=== PATIENT | male | born 1935 | race Caucasian/White ===

== ENCOUNTER 2019-01-30 10:54 | Outpatient (CLI) | payer MEDICARE, BC ==
--- NOTE | 2019-01-30 12:24 | RAD ---
CERVICAL SPINE THREE VIEWS: HISTORY: Cervicalgia. FINDINGS: Very markedly severe disk osteophytosis throughout the cervical spine with some actual kyphosis. No significant prevertebral soft tissue swelling. C7 and T1 are partially obscured on the lateral view. No acute fracture. IMPRESSION: 1. Very severe spondylosis with some actual kyphosis of the vertebral column. 2. No acute fracture or dislocation. Consider follow-up MRI for further assessment. POS: OFF
== END 2019-01-30 10:55 | disposition home or self-care (01) ==
LOC: BICRAD 10:54
PROVIDERS: ATTEND Family Medicine
DX: M54.2 Cervicalgia (principal); M47.812 Spondylosis without myelopathy or radiculopathy, cervical region; M40.202 Unspecified kyphosis, cervical region
CPT/HCPCS: 72040

== ENCOUNTER 2019-02-25 08:06 | Outpatient (CLI) | payer MEDICARE, BC ==
--- NOTE | 2019-02-25 09:31 | MRI ---
MRI cervical spine noncontrast HISTORY: Neck pain. Left arm radiation. FINDINGS: Desiccation of all of the intervertebral discs. Reversal normal lordotic curvature of the u pper cervical spine. Vertebral body heights are maintained. Prominent soft tissue gas posterior to the odontoid process effacement of ventral aspect of the thecal sac and spinal cord. No abnormal sign al is apparent within the spinal cord. C2-3: Minimal degenerative spondylolisthesis. Osteophytosis. Central canal and neural foramina are pa tent. C3-4: Minimal degenerative spondylolisthesis. Moderate posterior osteophyte/disc complex, slightly gr eater to the right midline, effacing the right side of the thecal sac and spinal cord. Severe central canal stenosis. No abnormal signal within the spinal cord. Severe bilateral foraminal stenose s. C4-5: Disc space narrowing. Prominent posterior osteophyte/disc complex, flattening right ventral asp ect of the spinal cord by approximately 30%. No abnormal signal within the cord. Severe central canal and bilateral foraminal stenoses. C5-6: Disc space narrowing and minimal degenerative retrolisthesis. Prominent posterior osteophyte/di sc complex compressing the spinal cord by approximately 40%. No abnormal signal within the cord. Severe central canal and bilateral foraminal stenoses, right worse than left. C6-7: Disc space narrowing and minimal degenerative retrolisthesis. Prominent posterior osteophyte/di sc complex and circumferential degenerative changes with severe stenosis of the central canal and neural foramina. C7-T1: Minimal degenerative spondylolisthesis. Mild central canal stenosis. Mild left foraminal steno ses. IMPRESSION: Severe multilevel degenerative changes throughout the cervical spine as detailed above, i ncluding significant compression of the spinal cord. No evidence of myelomalacia.
== END 2019-02-25 08:07 | disposition home or self-care (01) ==
LOC: BICMRI 08:06
PROVIDERS: ATTEND Family Medicine
DX: M47.9 Spondylosis, unspecified (principal); M47.812 Spondylosis without myelopathy or radiculopathy, cervical region; M40.292 Other kyphosis, cervical region
CPT/HCPCS: 72141

== ENCOUNTER 2019-03-15 12:44 | Outpatient (CLI) | payer MEDICARE, BC ==
[2019-03-15 12:20] LABS: Hemoglobin 12.9 g/dL (14.0-18.0); Mean Corpuscular Hemoglobin 32.8 pg (27.0-31.0); Mean Corpuscular Volume 99.3 fL (78.0-98.0); Mean Platelet Volume 9.9 fL (7.4-10.4); Platelet Count 157 thou/uL (130-400); Red Blood Cell (RBC) Count 3.92 mill/uL (4.70-6.10); White Blood Cell (WBC) Count 7.8 thou/uL (4.8-10.8)
[2019-03-15 12:29] LABS: Prothrombin Time 13.4 SEC (12.0-14.7)
[2019-03-15 12:30] LABS: PTT 37.8 SEC (22.9-36.1)
[2019-03-15 12:38] LABS: Anion Gap 16 mmol/L (10-20); BUN (Urea Nitrogen) 30 mg/dL (8.4-25.7); Calc. Creatinine Clearance 0 mL/min (70-130); Calcium 9.3 mg/dL (7.8-10.44); Carbon Dioxide 25 mmol/L (23-31); Chloride 105 mmol/L (98-107); Estimated GFR-MDRD 49; Glucose 80 mg/dL (83-110); Potassium 5.1 mmol/L (3.5-5.1); Sodium 141 mmol/L (136-145)
== END 2019-03-15 12:45 | disposition home or self-care (01) ==
LOC: LABBT 12:44
PROVIDERS: ATTEND Urology
DX: Z01.812 Encounter for preprocedural laboratory examination (principal); C67.3 Malignant neoplasm of anterior wall of bladder
CPT/HCPCS: 80048; 85027; 85610; 85730

== ENCOUNTER 2019-03-18 07:36 | Day surgery (SDC) | payer MEDICARE, BC ==
[2019-03-15 11:39] VITALS: BMI 29.5
[2019-03-18] MEDS ORDERED: Fentanyl 100 MCG/2 ML VIAL ONE (10:27)
[2019-03-18] MEDS ORDERED: PROPOFOL 200 MG/20 ML VIAL ONE (11:40)
--- NOTE | 2019-03-18 13:00 | RAD ---
RETROGRADE PYELOGRAM: Date: 03/18/19 HISTORY: Bladder tumor. FINDINGS: A series of 4 films are presented for interpretation. These show filling of nondilated collecting sys tems without evidence of any filling defects. IMPRESSION: Unremarkable bilateral retrograde pyelogram. POS: [facility]
--- NOTE | 2019-03-18 15:04 | OP ---
DATE OF PROCEDURE: 03/18/2019 PREOPERATIVE DIAGNOSES: Bladder lesion, history of transitional cell carcinoma of the bladder. POSTOPERATIVE DIAGNOSES: Bladder lesion, history of transitional cell carcinoma of the bladder. PROCEDURES PERFORMED: Cystoscopy, bilateral retrograde pyelography and transurethral removal with fulguration of small, less than 0.5 cm bladder lesion. SPECIMEN REMOVED: Bladder tumor from anterior wall. ESTIMATED BLOOD LOSS: Minimal. DRAINS: None. FINDINGS: There is no evidence of stricture disease. He has enlarged lateral lobes and some median lobe. He had 1+ trabeculation to ureteral orifices with clear efflux. Retrograde studies bilaterally showed no persistent filling defects or hydronephrosis. He had only 1 lesion seen, it was on the anterior wall between the anterior wall and the bladder neck about less than half a centimeter in size on today's estimation. It was removed with in 2 bites with the biopsy forceps, and then, its base was cauterized with a Bugbee electrode. DESCRIPTION OF PROCEDURE: Obtained written and verbal consent from the patient. After receiving IV antibiotics, he was taken to the operating suite. He was placed in supine position on the treatment table. PlexiPulses were placed on his lower extremities and turned on. He was given a general anesthetic and oral obturator intubation. He was placed in the dorsal lithotomy position. He was sterilely prepped and draped. Cystoscopy was performed with a 22-[place] sheath, this was well lubricated, passed under direct vision through the male urethra and into the urinary bladder with the aid of 30-degree lens video camera and monitor. The bladder was then systematically examined with both the 30- and 70-degree lens and was filled and emptied number of times in doing so. We then returned to the 30-degree lens and brought in a 5-[place] pollock catheter flushed with contrast. [employer] KUB was taken. The pollock catheter was placed about a centimeter up the left ureteral orifice and about 10 to 12 mL of contrast was slowly injected in a retrograde manner. Images were taken periodically with the fluoroscopy unit. The right side was then The bladder was then drained, and then, we brought in a cold cup biopsy forceps, biopsied this lesion, removing it completely with the biopsy forceps, then used a Bugbee electrode to cauterize the base of this. The bladder was drained. The instruments were removed. A Caballero catheter was not left indwelling. He was awakened, extubated, and taken by stretcher to the recovery room. Job ID: [id number]
== END 2019-03-18 16:40 | disposition home or self-care (01) ==
LOC: SDC 07:36
PROVIDERS: ATTEND Urology
PROC: 0TBB8ZX Excision of Bladder, Via Natural or Artificial Opening Endoscopic, Diagnostic (ICD-10-PCS; principal; 2019-03-18)
PROC: 0T5B8ZZ Destruction of Bladder, Via Natural or Artificial Opening Endoscopic (ICD-10-PCS; 2019-03-18)
PROC: BT141ZZ Fluoroscopy of Kidneys, Ureters and Bladder using Low Osmolar Contrast (ICD-10-PCS; 2019-03-18)
DX: C67.3 Malignant neoplasm of anterior wall of bladder (principal); I10 Essential (primary) hypertension; Z88.0 Allergy status to penicillin; Z88.1 Allergy status to other antibiotic agents; Z79.51 Long term (current) use of inhaled steroids; Z79.899 Other long term (current) drug therapy
CPT/HCPCS: 74420; 88307; C1758; J0690; J2704; J3010

== ENCOUNTER 2020-01-20 12:07 | Outpatient (CLI) | payer MEDICARE, BC ==
--- NOTE | 2020-01-20 13:36 | MRI ---
MRI Cervical spine without contrast: HISTORY: Cervical spinal stenosis. Patient wasn't neck pain with numbness and tingling in left arm. COMPARISON: 02/25/2019 FINDINGS: The craniocervical junction is unremarkable. No significant cord signal abnormality. Paravertebral soft tissues have a normal appearance and normal signal intensity. C1-2: There are prominent degenerative changes seen at the articulation of the odontoid with anterior arch of C1. There is a horizontally oriented linear low signal intensity area again seen at the junction of the odontoid and body of C2 which is likely developmental in origin and stable when chai red to the prior study. However, there is increased T2-weighted signal intensity/bone marrow edema in this region likely due to abnormal mechanics and degenerative changes. This was also present on th e prior exam. C2-3: Mild facet degenerative changes are seen on the right with mild disc osteophyte complex present . There is effacement of the ventral subarachnoid space similar to prior exam. Neural foramina are patent. C3-4: Trace anterolisthesis of C3 on C4. Mild loss of intervertebral disc height. Broad-based disc os teophyte complex is present with facet hypertrophic changes on the right. Moderate central canal narrowing is present which has increased from prior exam. Moderate left and moderate to severe right- sided neural foraminal narrowing is present. The degree of neural foraminal narrowing appears similar to prior exam. C4-5: Loss of intervertebral disc height with mild endplate degenerative changes. Disc osteophyte com plex is present at this level. Moderate central canal narrowing is present. There is a central disc protrusion which does result in mass effect and deformity of the central and right paracentral aspect of the spinal cord which was also present on the prior exam. No signal abnormality is seen in the spinal cord at this level. Mild left and moderate to severe right neural foraminal narrowing is prese nt. C5-6: Loss of intervertebral disc height. Broad-based disc osteophyte complex is present. Facet hyper trophic changes are noted. Moderate narrowing central spinal canal is present with mild flattening of the anterior aspect of the spinal cord. Normal signal intensity is present in the spinal cord. Sev ere right and moderate to severe left-sided neural foraminal narrowing is present. C6-7: Loss of intervertebral disc height. Broad-based disc osteophyte complex is present which efface s the ventral subarachnoid space with slight flattening of the anterior aspect of the spinal cord. Facet hypertrophic changes are present at this level. Severe bilateral neural foraminal narrowing is present. C7-T1: Slight anterolisthesis of C7 on T1 is again seen. Minimal disc osteophyte complex is noted. Fa cet hypertrophic changes are present. Mild left-sided neural foraminal narrowing is present. The right neural foramen is patent. No significant central canal narrowing is present. T1-2 level: Mild loss of vertebral disc height. Mild disc osteophyte complex is present narrows the v entral subarachnoid space. Neural foramina are patent. IMPRESSION: 1. Multilevel degenerative changes which do not appear significantly progressed when compared to the prior exam. There are degrees of moderate and severe neural foraminal narrowing present at multiple levels.
--- NOTE | 2020-01-20 13:55 | RAD ---
CERVICAL SPINE TWO VIEWS: History: Spinal stenosis, cervical region. Left arm pain and numbness. Comparison: 01-30-2019 FINDINGS: Severe multilevel disc osteophytosis and facet arthrosis. No prevertebral soft tissue swelling. Overa ll stable appearance from prior exam. IMPRESSION: Very markedly severe spondylosis, overall stable. No significant new process. POS: [facility]
== END 2020-01-20 12:08 | disposition home or self-care (01) ==
LOC: BICMRI 12:07
PROVIDERS: ATTEND Neurological Surgery
DX: M48.02 Spinal stenosis, cervical region (principal); M47.812 Spondylosis without myelopathy or radiculopathy, cervical region; M50.30 Other cervical disc degeneration, unspecified cervical region
CPT/HCPCS: 72040; 72141